=== PATIENT | female | born 1950 | race Caucasian/White ===

== ENCOUNTER → 2018-01-18 | Outpatient (CLI) | payer OTHER ==
[~2018-01-18] MED LIST: ALBU90OI; ALBU90OI6 INH; ANTIBIODICS; ASPI81CH PO; ASPI81EC; ATEN50; BUME1; BUME2 PO; CALACE667G PO; CALTRATE; CHOLESTYRAMINE 4 GM; CIPR250 PO; CYAN100 PO; ERGO50000 PO; ESTR25VT PV; ESTRADIOL; EZET10; FENO67; FISH1000 PO; FLUSAL1005 IH; FLUSAL5005; GABA100; GABA100 PO; HYDACE5 PO; HYDACE5325 PO; INSULANI SC; INSULANI SUBQ; INSULIN LISPRO; IRON; MAGOXI400 PO; MONT10T; MONT10T PO; MULTIVITAMIN QD; MULVITMINE PO; OMEP20ER PO; PARI1 PO; PARO20; PIOG15; POTA10T PO; PROACE100 PO; PROM25 PO; RXPROACE PO; SUCR1 PO; TRAM50 PO; TRIM; VITB100; ZOLP10 PO; ZOLP12.5 PO; [UNRECOGNIZED DRUG - OTHER]; [UNRECOGNIZED DRUG - OTHER]; [UNRECOGNIZED DRUG - REMARK]
== END ==
LOC: OLS 10:56 → LAB SHORT 10:56
DX: E11.65 Type 2 diabetes mellitus with hyperglycemia (principal)
CPT/HCPCS: 82043

== ENCOUNTER 2018-05-26 13:02 | Inpatient (IN) | payer OTHER ==
[~2018-05-26] VITALS: Ht 152.4 cm; Wt 56.2 kg
[2018-05-26 13:50] LABS: BASOPHILS ABSOLUTE AUTO 0.16 K/mm3 (0.00-0.23); BASOPHILS PERCENT AUTO 1 % (0-2); EOSINOPHILS ABSOLUTE AUTO 0.01 K/mm3 (0.00-0.68); EOSINOPHILS PERCENT AUTO 0 % (0-6); Hematocrit 38.4 % (33.0-51.0); Hemoglobin 13.4 g/dL (11.5-16.0); IMMATURE GRAN ABSOLUTE AUTO 0.92 K/mm3 (0.00-0.10); IMMATURE GRAN PERCENT AUTO 4 % (0-1); LYMPHOCYTES ABSOLUTE AUTO 2.23 K/mm3 (0.84-5.20); LYMPHOCYTES PERCENT AUTO 9 % (21-46); MONOCYTES ABSOLUTE AUTO 1.19 K/mm3 (0.16-1.47); MONOCYTES PERCENT AUTO 5 % (4-13); Mean Corpuscular HGB 28.9 pg (26.0-34.0); Mean Corpuscular HGB Conc 34.9 g/dL (31.5-36.5); Mean Corpuscular Volume 83 fL (80-100); Mean Platelet Volume 9.1 fL (9.1-12.4); NEUTROPHILS ABSOLUTE AUTO 19.66 K/mm3 (1.96-9.15); NEUTROPHILS PERCENT AUTO 81 % (41-73); Platelet Count 966 K/mm3 (150-400); RDW Standard Deviation 38.5 fL (35.1-46.3); Red Blood Cell Count 4.64 M/mm3 (3.80-5.20); White Blood Cell Count 24.17 K/mm3 (4.00-11.30)
[2018-05-26 14:11] LABS: Alanine Aminotransfer (ALT/SGP 13 U/L (12-78); Albumin, Blood 2.1 g/dL (3.4-5.0); Albumin/Globulin Ratio 0.3 (0.8-1.8); Alk Phos 189 U/L (50-136); Anion Gap 11 mmol/L (6-16); Aspartate Aminotrans (AST/SGOT 13 U/L (12-37); Bilirubin, Total 0.3 mg/dL (0.1-1.0); Blood Urea Nitrogen 12 mg/dL (8-24); CO2, Blood 24 mmol/L (21-32); Calcium, Blood 8.2 mg/dL (8.5-10.1); Chloride, Blood 94 mmol/L (98-108); Globulin, Blood 6.1 g/dL (2.2-4.0); Glomerular Filtration Rate >60 (60-); Glucose, Blood 300 mg/dL (70-99); Potassium, Blood 3.1 mmol/L (3.5-5.5); Sodium, Blood 129 mmol/L (136-145); Total Protein, Blood 8.2 g/dL (6.4-8.2); Troponin I <0.015 ng/mL (0.000-0.040)
[2018-05-26] MEDS ORDERED: ROPI.25 PO (14:14)
[2018-05-26] MEDS ORDERED: Lisinopril2.5 MG PO (14:14)
[2018-05-26] MEDS ORDERED: TIZANIDINE HCL2 MG PO (14:14)
[2018-05-26] MEDS ORDERED: TOUJEO MAX300 UNIT/1 (14:15)
[2018-05-26] MEDS ORDERED: HYDR1TAB94 PO (14:15)
[2018-05-26] MEDS ORDERED: Voltaren100 GM TOP (14:15)
[2018-05-26 15:41] LABS: Influenza A Negative (NEGATIVE); Influenza B Negative (NEGATIVE)
[2018-05-27 05:27] LABS: BASOPHILS ABSOLUTE AUTO 0.15 K/mm3 (0.00-0.23); BASOPHILS PERCENT AUTO 1 % (0-2); EOSINOPHILS ABSOLUTE AUTO 0.01 K/mm3 (0.00-0.68); EOSINOPHILS PERCENT AUTO 0 % (0-6); Hematocrit 35.5 % (33.0-51.0); Hemoglobin 12.1 g/dL (11.5-16.0); IMMATURE GRAN ABSOLUTE AUTO 0.94 K/mm3 (0.00-0.10); IMMATURE GRAN PERCENT AUTO 4 % (0-1); LYMPHOCYTES ABSOLUTE AUTO 3.09 K/mm3 (0.84-5.20); LYMPHOCYTES PERCENT AUTO 14 % (21-46); MONOCYTES ABSOLUTE AUTO 1.48 K/mm3 (0.16-1.47); MONOCYTES PERCENT AUTO 7 % (4-13); Mean Corpuscular HGB 28.5 pg (26.0-34.0); Mean Corpuscular HGB Conc 34.1 g/dL (31.5-36.5); Mean Corpuscular Volume 84 fL (80-100); Mean Platelet Volume 9.4 fL (9.1-12.4); NEUTROPHILS ABSOLUTE AUTO 16.91 K/mm3 (1.96-9.15); NEUTROPHILS PERCENT AUTO 75 % (41-73); Platelet Count 788 K/mm3 (150-400); RDW Coefficient Variation 13.2 % (11.7-14.2); Red Blood Cell Count 4.24 M/mm3 (3.80-5.20); White Blood Cell Count 22.58 K/mm3 (4.00-11.30)
[2018-05-27 05:48] LABS: Anion Gap 8 mmol/L (6-16); Blood Urea Nitrogen 6 mg/dL (8-24); Bun/Creatinine Ratio 12.7 (12.0-20.0); CO2, Blood 26 mmol/L (21-32); Calcium, Blood 7.7 mg/dL (8.5-10.1); Chloride, Blood 100 mmol/L (98-108); Creatinine, Blood 0.47 mg/dL (0.40-1.00); Glomerular Filtration Rate >60 (60-); Glucose, Blood 132 mg/dL (70-99); Potassium, Blood 3.2 mmol/L (3.5-5.5); Sodium, Blood 134 mmol/L (136-145)
[2018-05-28 06:33] LABS: BASOPHILS ABSOLUTE AUTO 0.11 K/mm3 (0.00-0.23); BASOPHILS PERCENT AUTO 1 % (0-2); EOSINOPHILS ABSOLUTE AUTO 0.08 K/mm3 (0.00-0.68); EOSINOPHILS PERCENT AUTO 0 % (0-6); Hemoglobin 11.7 g/dL (11.5-16.0); IMMATURE GRAN ABSOLUTE AUTO 0.63 K/mm3 (0.00-0.10); IMMATURE GRAN PERCENT AUTO 3 % (0-1); LYMPHOCYTES ABSOLUTE AUTO 3.35 K/mm3 (0.84-5.20); LYMPHOCYTES PERCENT AUTO 18 % (21-46); MONOCYTES ABSOLUTE AUTO 1.38 K/mm3 (0.16-1.47); MONOCYTES PERCENT AUTO 7 % (4-13); Mean Corpuscular HGB Conc 34.4 g/dL (31.5-36.5); Mean Corpuscular Volume 84 fL (80-100); Mean Platelet Volume 8.9 fL (9.1-12.4); NEUTROPHILS ABSOLUTE AUTO 13.26 K/mm3 (1.96-9.15); NEUTROPHILS PERCENT AUTO 71 % (41-73); Platelet Count 730 K/mm3 (150-400); RDW Coefficient Variation 13.2 % (11.7-14.2); RDW Standard Deviation 39.8 fL (35.1-46.3); Red Blood Cell Count 4.03 M/mm3 (3.80-5.20); White Blood Cell Count 18.81 K/mm3 (4.00-11.30)
[2018-05-29] MEDS ORDERED: GUAI600T33 (11:16)
[2018-05-29] MEDS ORDERED: INSULANPEN SC (11:21)
[2018-05-29] MEDS ORDERED: LEVFLO250 PO (13:58)
== END 2018-05-29 15:27 | disposition home or self-care (01) | DRG 194 ==
LOC: ER 13:02 → MEDS 14:39 → ENPENDDIS 05-29 11:20 → MEDS 05-29 15:27
PROVIDERS: Emergency Medicine; Hospitalist
PROC: 3E0234Z Introduction of Serum, Toxoid and Vaccine into Muscle, Percutaneous Approach (ICD-10-PCS; principal; 2018-05-27)
DX: J18.9 Pneumonia, unspecified organism (principal); E87.1 Hypo-osmolality and hyponatremia; J15.212 Pneumonia due to Methicillin resistant Staphylococcus aureus; E11.9 Type 2 diabetes mellitus without complications; Z79.4 Long term (current) use of insulin; G25.81 Restless legs syndrome; J44.9 Chronic obstructive pulmonary disease, unspecified; R00.0 Tachycardia, unspecified; E86.0 Dehydration; E87.6 Hypokalemia; R73.9 Hyperglycemia, unspecified; Z88.5 Allergy status to narcotic agent; Z88.8 Allergy status to other drugs, medicaments and biological substances; Z98.84 Bariatric surgery status; Z23 Encounter for immunization; Z68.25 Body mass index [BMI] 25.0-25.9, adult
CPT/HCPCS: 36415; 71046; 80048; 80053; 82947; 83605; 83690; 84484; 85025; 87040; 87070; 87077; 87147; 87186; 87205; 87804; 90686; 93005; 93010; 94640; 94760; 96361; 96374; 99285-25; J1650; J1956; J3480; J7050; J7120

== ENCOUNTER 2018-12-27 10:21 | Day surgery (SDC) | payer OTHER ==
[~2018-12-27] VITALS: Ht 152.4 cm; Wt 50.9 kg
[~2018-12-27 10:21] MED LIST changes: +GUAI600T33; +HYDR1TAB94 PO; +INSULANPEN SC; +LEVFLO250 PO; +Lisinopril2.5 MG PO; +ROPI.25 PO; +TIZANIDINE HCL2 MG PO; +TOUJEO MAX300 UNIT/1; +Voltaren100 GM TOP
== END 2018-12-27 11:56 | disposition home or self-care (01) ==
LOC: ORSCSDS 10:21
PROVIDERS: Internal Medicine Gastroenterology
PROC: 0DB68ZX Excision of Stomach, Via Natural or Artificial Opening Endoscopic, Diagnostic (ICD-10-PCS; principal; 2018-12-27 12:00)
PROC: 0D758ZZ Dilation of Esophagus, Via Natural or Artificial Opening Endoscopic (ICD-10-PCS; principal; 2018-12-27 12:00)
PROC: 0DB58ZX Excision of Esophagus, Via Natural or Artificial Opening Endoscopic, Diagnostic (ICD-10-PCS; principal; 2018-12-27 12:00)
DX: R93.89 Abnormal findings on diagnostic imaging of other specified body structures (principal); K21.0 Gastro-esophageal reflux disease with esophagitis; K76.0 Fatty (change of) liver, not elsewhere classified; Z98.84 Bariatric surgery status; E03.9 Hypothyroidism, unspecified; E11.9 Type 2 diabetes mellitus without complications; E78.5 Hyperlipidemia, unspecified; G47.33 Obstructive sleep apnea (adult) (pediatric); Z79.4 Long term (current) use of insulin; Z79.899 Other long term (current) drug therapy
CPT/HCPCS: 82947; 88305; 88312; 88342; C1726; J2704; J7120

== ENCOUNTER 2022-01-23 19:29 | Inpatient (IN) | payer MEDICARE ==
[~2022-01-23] VITALS: Ht 154.9 cm; Wt 45.2 kg
[2022-01-23 20:19] LABS: BASOPHILS ABSOLUTE AUTO 0.07 K/mm3 (0.00-0.23); BASOPHILS PERCENT AUTO 1 % (0-2); EOSINOPHILS ABSOLUTE AUTO 0.01 K/mm3 (0.00-0.68); EOSINOPHILS PERCENT AUTO 0 % (0-6); Hemoglobin 15.9 g/dL (11.5-16.0); IMMATURE GRAN ABSOLUTE AUTO 0.13 K/mm3 (0.00-0.10); IMMATURE GRAN PERCENT AUTO 1 % (0-1); LYMPHOCYTES ABSOLUTE AUTO 1.54 K/mm3 (0.84-5.20); LYMPHOCYTES PERCENT AUTO 11 % (21-46); MONOCYTES ABSOLUTE AUTO 0.91 K/mm3 (0.16-1.47); MONOCYTES PERCENT AUTO 6 % (4-13); Mean Corpuscular HGB 27.5 pg (26.0-34.0); Mean Corpuscular HGB Conc 34.6 g/dL (31.5-36.5); Mean Corpuscular Volume 79 fL (80-100); NEUTROPHILS ABSOLUTE AUTO 11.55 K/mm3 (1.96-9.15); NEUTROPHILS PERCENT AUTO 81 % (41-73); Platelet Count 591 K/mm3 (150-400); RDW Coefficient Variation 13.2 % (11.7-14.2); RDW Standard Deviation 37.3 fL (35.1-46.3); Red Blood Cell Count 5.79 M/mm3 (3.80-5.20); White Blood Cell Count 14.21 K/mm3 (4.00-11.30)
[2022-01-23 20:22] LABS: Bicarbonate Venous 14.1 mmol/L (24.0-30.0); PCO2 Venous 32.5 mmHg (38-42); PO2 Venous 59.1 mmHg (38-42)
[2022-01-23 20:23] LABS: pH Blood Venous 7.21 (7.34-7.37)
[2022-01-23 20:39] LABS: Albumin, Blood 3.2 g/dL (3.4-5.0); Albumin/Globulin Ratio 0.6 (0.8-1.8); Bilirubin, Total 0.6 mg/dL (0.1-1.0); Calcium, Blood 9.6 mg/dL (8.5-10.1); Creatinine, Blood 0.56 mg/dL (0.40-1.00); Globulin, Blood 5.1 g/dL (2.2-4.0); Potassium, Blood 3.9 mmol/L (3.5-5.5); Total Protein, Blood 8.3 g/dL (6.4-8.2)
[2022-01-23 21:04] LABS: Magnesium, Blood 1.7 mg/dL (1.6-2.4)
[2022-01-23 21:05] LABS: Beta-hydroxybutyrate 89.5 mg/dL (0.2-2.8)
--- NOTE | 2022-01-23 23:05 | NUR ---
ARRIVAL TO ICU PT BROUGHT TO ICU VIA GURNEY. SHE IS ON AN INSULIN GTT AT 4UNITS/HR. SHE IS ALERT AND ANSWERS QUESTIONS BUT MAY BE A POOR HISTORIAN. SHE REPORTS CHECKING HER BLOOD SUGAR ONCE EVERY TWO WEEKS. SHE STS SHE HAS NOT ATE OR DRANK SINCE YESTERDAY AND UNKNOWN LAST BM. SHE DENIES N/V AND ABDOMINAL PAIN. SINUS TACH ON MONITOR WITH HR 100-110. SBP 100S. SPO2 >95% ON RA. SHE DENIES FEELING ITCHY BUT FREQUENTLY SCRATCHES HIPS. BUTTOCKS AND NIA AREA RED. CBG 380, INSULIN GTT TITRATED TO 2UNITS/HR. NS STARTED AT 75ML/HR. PT RESTING WITH EYES CLOSED, CALL LIGHT WITHIN REACH.
[2022-01-24 01:01] LABS: Source, Urine Clean Catch
[2022-01-24 01:09] LABS: Appearance, Urine Hazy (Clear); Bilirubin, Urine Neg (Neg); Blood, Urine 1+ (Neg); Color, Urine Yellow (P-Yellow); Glucose Qualitative, Urine 4+ (Neg); Ketones, Urine 4+ (Neg); Leukocyte Esterase, Urine 2+ (Neg); Nitrite, Urine Pos (Neg); Protein, Urine 1+ (Neg); Urobilinogen, Urine NORM (Normal)
[2022-01-24 01:15] LABS: Bacteria Mod /hpf; Red Blood Cells, Urine Rare /hpf (0-2); Squamous Epithelial Cells Not Seen /hpf (Few); White Blood Cells, Urine TNTC /hpf (0-5)
[2022-01-24 04:56] LABS: BASOPHILS ABSOLUTE AUTO 0.06 K/mm3 (0.00-0.23); BASOPHILS PERCENT AUTO 1 % (0-2); EOSINOPHILS ABSOLUTE AUTO 0.04 K/mm3 (0.00-0.68); EOSINOPHILS PERCENT AUTO 0 % (0-6); Hematocrit 42.9 % (33.0-51.0); Hemoglobin 14.8 g/dL (11.5-16.0); IMMATURE GRAN ABSOLUTE AUTO 0.11 K/mm3 (0.00-0.10); IMMATURE GRAN PERCENT AUTO 1 % (0-1); LYMPHOCYTES ABSOLUTE AUTO 2.25 K/mm3 (0.84-5.20); LYMPHOCYTES PERCENT AUTO 18 % (21-46); MONOCYTES ABSOLUTE AUTO 1.27 K/mm3 (0.16-1.47); MONOCYTES PERCENT AUTO 10 % (4-13); Mean Corpuscular HGB 27.4 pg (26.0-34.0); Mean Corpuscular HGB Conc 34.5 g/dL (31.5-36.5); Mean Corpuscular Volume 79 fL (80-100); Mean Platelet Volume 8.9 fL (9.1-12.4); NEUTROPHILS ABSOLUTE AUTO 9.11 K/mm3 (1.96-9.15); NEUTROPHILS PERCENT AUTO 71 % (41-73); Platelet Count 510 K/mm3 (150-400); RDW Coefficient Variation 13.2 % (11.7-14.2); RDW Standard Deviation 37.2 fL (35.1-46.3); White Blood Cell Count 12.84 K/mm3 (4.00-11.30)
[2022-01-24 05:24] LABS: Albumin, Blood 2.7 g/dL (3.4-5.0); Albumin/Globulin Ratio 0.6 (0.8-1.8); Bilirubin, Total 0.7 mg/dL (0.1-1.0); Bun/Creatinine Ratio 31.9 (12.0-20.0); Calcium, Blood 9.4 mg/dL (8.5-10.1); Creatinine, Blood 0.41 mg/dL (0.40-1.00); Globulin, Blood 4.5 g/dL (2.2-4.0); Potassium, Blood 3.7 mmol/L (3.5-5.5); Total Protein, Blood 7.2 g/dL (6.4-8.2)
--- NOTE | 2022-01-24 10:15 | NUR ---
ASSUMED CARE OF PT, REPORT RCV'D FROM ANUM VELASQUEZ. PT ALERT TO SELF, FOLLOWS COMMANDS, WITHDRAWN ONLY ANSWERING YES/NO QUESTIONS. PT FORGETFUL NEEDING CONSISTENT REMINDERS TO USE CALL LIGHT AND TO ASK FOR ASSISTANCE WITH AMBULATING. BED ALARM ON, BED IN LOW/LOCKED POSITION, DOOR/CURTAIN OPEN. LUNG SOUNDS CLEAR T/O, SATS 98% ON ROOM AIR. PT HAS NO APPETITE, REFUSING MEALS AND PO MEDICATIONS. HYPOACTIVE BOWEL TONES. INSULIN GTT @3 UNITS/HR, D5 1/2NS @75 ML/HR. UPDATED PT'S DAUGHTER ELLA THIS AM, PT'S AT BEDSIDE MEETING WITH CARE MANAGEMENT AND PALLIATIVE CARE. SEE FULL SHIFT ASSESSMENT.
[2022-01-24 10:52] LABS: Beta-hydroxybutyrate 16.5 mg/dL (0.2-2.8); Bun/Creatinine Ratio 31.2 (12.0-20.0); Calcium, Blood 8.8 mg/dL (8.5-10.1); Creatinine, Blood 0.35 mg/dL (0.40-1.00); Magnesium, Blood 1.7 mg/dL (1.6-2.4); Phosphorus, Blood 1.4 mg/dL (2.5-4.9); Potassium, Blood 3.5 mmol/L (3.5-5.5)
--- NOTE | 2022-01-24 11:00 | NUR ---
PT MUCH MORE ALERT AND RESPONSIVE, REQUESTING TO EAT FOOD.
--- NOTE | 2022-01-24 16:56 | NUR ---
PT CONTINUES TO HAVE INTERMITTENT CONFUSION, REDIRECTABLE AND COOPERATIVE WITH CARE. WORKED WELL WITH PT/OT, RECOMMENDED FWW AND HOME HEALTH. PT CHANGED TO MEDICAL STATUS, NO TELE-TRANSFERRED TO ROOM 352.
--- NOTE | 2022-01-24 17:14 | NUR ---
Assumed care Received report from ANUM Leo. Patient transferred from ICU. Arrived via bed, no family at bedside. Ambulated to bed with SBA. NS @ 100 resumed. Settled to room, bed in lowest position, call light near, bed alarm on.
--- NOTE | 2022-01-24 17:40 | NUR ---
pt fatigued at bedside seems confussed and repetative. pt having heaches and fatigue. pt on insuln drip . review of hose status will foloow for plan of care and disease managment. will discuass code status.
--- NOTE | 2022-01-25 03:55 | NUR ---
PT A/O TO SELF AND . PT GETS CONFUSED AND IS FORGETFUL. PT FINISHED 1L BAG OF NS PER EMAR. PT HAS BEEN CONTINENT AND HAS VOIDED X 6. PT HAD PALLIATIVE CARE CONSULT YESTERDAY AFTERNOON. PT REMINDED TO USE CALL LIGHT BUT FORGETS THAT SHE SAID YES. PT AMBULATES WITH SBA AND FWW AND TOLERATES WELL. PT IS RESTING WITH CALL LIGHT WITHIN REACH, BED IN LOW POSITION, AND BED ALARM ON.
--- NOTE | 2022-01-25 06:06 | NUR ---
STUDENT NOTES AND DOCUMENTS REVIEWED AND IN AGREEMENT WITH.
[2022-01-25 06:25] LABS: Albumin, Blood 2.3 g/dL (3.4-5.0); Anion Gap 8 mmol/L (6-16); Blood Urea Nitrogen 7 mg/dL (8-24); Bun/Creatinine Ratio 21.3 (12.0-20.0); CO2, Blood 22 mmol/L (21-32); Calcium, Blood 8.7 mg/dL (8.5-10.1); Chloride, Blood 106 mmol/L (98-108); Creatinine, Blood 0.33 mg/dL (0.40-1.00); Glomerular Filtration Rate 109 (60-); Glucose, Blood 112 mg/dL (70-99); Magnesium, Blood 1.5 mg/dL (1.6-2.4); Phosphorus, Blood 2.1 mg/dL (2.5-4.9); Potassium, Blood 3.2 mmol/L (3.5-5.5); Sodium, Blood 136 mmol/L (136-145)
--- NOTE | 2022-01-25 10:30 | NUR ---
DR. LOPEZ AT BEDSIDE, DISCUSSING WITH PT'S DAUGHTER ELLA AND PT'S SPOUSE ED.
[2022-01-25] MEDS ORDERED: MIRALAX11910 PO (12:51)
[2022-01-25] MEDS ORDERED: VISBIOME 112.51 EACH PO (12:51)
[2022-01-25] MEDS ORDERED: CEFD300 PO (12:52)
[2022-01-25] MEDS ORDERED: HUMALOG KW100 UNIT/1 SC (12:53)
[2022-01-25] MEDS ORDERED: ERGO400 PO (12:54)
[2022-01-25] MEDS ORDERED: PANT40 PO (12:54)
[2022-01-25] MEDS ORDERED: CEROVITE PO (12:57)
--- NOTE | 2022-01-25 13:34 | NUR ---
DISCHARGE INSTRUCTIONS REVIEWED WITH PT AND DAUGHTER ELLA, INCLUDING MEDICATIONS TO VP INTEGRITY FROM PHARMACY INCLUDING NEW MEDICATIONS, LOW SLIDING SCALE, AND IMPORTANCE TO CALL AND MAKE HOSPITAL FOLLOW UP APPT WITH PCP. PT STATES SHE IS NOT SURE IF SHE HAS INSULIN AT HOME. DAUGHTER ELLA STATES SHE WILL VERIFY MEDICATIONS AT HOME AND DISCUSS FURTHER WITH PT'S SPOUSE ED, WHO WILL BE PT'S PRIMARY CAREGIVER. HOME HEALTH HAS ALSO BEEN ORDERED AND FACE TO FACE COMPLETED.
--- NOTE | 2022-01-25 14:26 | NUR ---
PT'S DAUGHTER, ELLA, AT BEDSIDE. ELLA REPORTS THAT TRACY'S SPOUSE STATES THEY DO NOT HAVE ANY SEMGLEE INSULIN AT HOME. RN THEN CALLED DR. LOPEZ, WHO HAD ORDERS TO CALL PHARMACY WITH ORDER FOR SEMGLEE. RN CALLED PHARMACY AND SPOKE TO GERHARD, GAVE VERBAL ORDER FOR SEMGLEE 25 UNIT SUBQ AT BEDTIME, ONCE DAILY
--- NOTE | 2022-01-25 16:30 | NUR ---
PHONE CALL TO DR. LOPEZ - GAVE PT UPDATE. PT HAS HAD TWO SEPARATE EPISODES OF EMESIS, MODERATE AMOUNT OF LIGHT BROWN MUCUS EMESIS. PT HAS BEEN VOIDING FREQUENT SMALL VOIDS. NAUSEOUS AFTER DINNER, WHICH WAS IMPROVED WITH ZOFRAN. PT STATES SHE HASN'T HAD MUCH APPETITE "FOR A LONG TIME." PT HAS NOT HAD A BOWEL MOVEMENT "IN A LONG TIME" = BOWEL TONES HYPOACTIVE, REPORTS UPSET STOMACH, NOT PAINFUL TO PALPATION. NO ABD DISTENTION NOTED. DR. LOPEZ WITH ORDERS FOR NORMAL SALINE WITH 20MEQ OF POTASSIUM AT 100ML/HR X 1 BAG, AND SENNOKOT 17.2 MG.
--- NOTE | 2022-01-25 17:49 | NUR ---
PHONE CALL TO DR. LOPEZ TO NOTIFY THAT PT'S CBG PRIOR TO DINNER WAS 379. PT RECEIVED 5 UINITS OF HUMALOG INSULIN PER SLIDING SCALE. DR. LOPEZ WITH NO FUTHER ORDERS AT THIS TIME.
--- NOTE | 2022-01-25 22:10 | NUR ---
PATIENT OOB X 6 WITHIN AN HOUR ACTIVATING BED ALARM. NOT ABLE TO FOLLOW DIRECTIONS AT THIS TIME. BED ALARM RESET. CALL LIGHT IN REACH.
--- NOTE | 2022-01-26 03:25 | NUR ---
PT HAS VOIDED X 12 DURING SHIFT. PT STATES CONSTANT URGE TO GO. PT HAS 20 meQ POTASSIUM IN 1000ML NS RUNNING AT 100MLS/HR. PT DOES NOT USE CALL LIGHT AND IS IMPULSIVE. PT A/O TO SELF, SUROUNDINGS AND FAMILY BUT THINKS IT IS 1971. PT HAS DISCHARGE ORDERS READY AND IS PLANNING ON DISCHARGE ON 01/26/22. PT HAS HOME HEALTH SET UP AND GOING TO LIVE WITH SPOUSE. PT IS RESTING WITH TV ON AND CALL LIGHT WITHIN REACH, BED IN LOW POSITION, AND BED ALARM ON.
--- NOTE | 2022-01-26 05:33 | NUR ---
QU[employer] EXTRACTION WORKER NOTES AND DOCUMENTION REVIEWED AND IN AGREEMENT
--- NOTE | 2022-01-26 09:52 | NUR ---
SPOUSE, ED, AT BEDSIDE WITH QUESTIONS RE: WHEN IS SHE ABLE TO GO HOME? RN ADVISED WITH AWAIT ROUNDING UPDATES FROM DR. LOPEZ. FAMILY VERB UNDERSTANDING.
--- NOTE | 2022-01-26 10:00 | NUR ---
PHONE CALL WITH DR. MONACO: RN PLACED CALL TO DR. MONACO INQUIRING ABOUT DISCHARGE ORDERS, VERBAL ORDERS FROM DR. MONACO - IF PT IS STABLE, SHE IS OK FOR DISCHARGE. PT HAS DENIED NAUSEA AND EMESIS THIS AM, EATEN 50% OF HER BREAKFAST. PT'S SPOUSE, ED, AT BEDSIDE - NOTIFIED OF UPDATE, HE IS ASSISTING PT WITH HER CLOTHING. PT'S DISCHARGE TEACHING AND MEDICATIONS AND RETURN PRECAUTIONS WERE REVIEWED WITH FAMILY YESTERDAY WITH THIS RN. DISCHARGE PAPERWORK, SIGNED BY PT'S DAUGHTER ELLA, IS IN CHART.
--- NOTE | 2022-01-26 10:27 | NUR ---
POWERGLIDE IV IN RIGHT ARM REMOVED BY ANUM MANN.
--- NOTE | 2022-01-26 11:25 | NUR ---
DISCHARGE INSTRUCTION REVIEWED WITH SPOUSE AND DAUGHTER, REGARDING MEDICATION COMPLIANCE AND STORAGE OF INSULIN. DIABETIC EDUCATION PROVIDED. PT DISCHARGED TO CARE OF DAUGHTER ELLA, SPOUSE ED AND SON -IN-LAW. ALL PERSONAL BELONGINGS RETURNED TO PT. PT ESCORTED VIA WHEELCHAIR, PROPELLED BY RN, TO PRIVATE VEHICLE DRIVEN BY SON-IN-LAW. TOLERATED PROCEDURE WELL, NO SX OF DISTRESS.
== END 2022-01-26 10:52 | disposition home health service (06) | DRG 637 ==
LOC: ER 19:29 → ICUE 19:30 → ICUW 19:30 → ICUE 23:05 → MEDS 01-24 16:58
PROVIDERS: Emergency Medicine; Internal Medicine; Physician Assistant; ADMIT Internal Medicine
DX: E11.10 Type 2 diabetes mellitus with ketoacidosis without coma (principal); G92.8 Other toxic encephalopathy; E43 Unspecified severe protein-calorie malnutrition; F05 Delirium due to known physiological condition; N39.0 Urinary tract infection, site not specified; Z68.1 Body mass index [BMI] 19.9 or less, adult; E86.0 Dehydration; J44.9 Chronic obstructive pulmonary disease, unspecified; F03.90 Unspecified dementia, unspecified severity, without behavioral disturbance, psychotic disturbance, mood disturbance, and anxiety; E83.39 Other disorders of phosphorus metabolism; M54.9 Dorsalgia, unspecified; G89.29 Other chronic pain; B96.1 Klebsiella pneumoniae [K. pneumoniae] as the cause of diseases classified elsewhere; E87.6 Hypokalemia; E83.42 Hypomagnesemia; K21.9 Gastro-esophageal reflux disease without esophagitis; K76.0 Fatty (change of) liver, not elsewhere classified; I48.0 Paroxysmal atrial fibrillation; E55.9 Vitamin D deficiency, unspecified; Z91.14 Patient's other noncompliance with medication regimen; Z98.84 Bariatric surgery status; Z88.1 Allergy status to other antibiotic agents; Z88.5 Allergy status to narcotic agent; Z88.8 Allergy status to other drugs, medicaments and biological substances; Z79.82 Long term (current) use of aspirin; Z79.899 Other long term (current) drug therapy
CPT/HCPCS: 36415; 70450; 71045; 80048; 80053; 80069; 81001; 82010; 82306; 82607; 82746; 82803; 82947; 83036; 83735; 83880; 83930; 84100; 85025; 87077; 87086; 87186; 96361; 96374; 97116; 97162; 97165; 97530; 99285-25; A9270; J0696; J1650; J1815; J2405; J3475; J3480; J7030; J7042; J7060; J7120

== ENCOUNTER 2022-05-04 20:33 | Emergency (ER) | payer MEDICARE, OTHER ==
[~2022-05-04] VITALS: Ht 167.6 cm; Wt 70.3 kg
[~2022-05-04 20:33] MED LIST changes: +CEFD300 PO; +CEROVITE PO; +ERGO400 PO; +HUMALOG KW100 UNIT/1 SC; +MIRALAX11910 PO; +PANT40 PO; +VISBIOME 112.51 EACH PO
[2022-05-04 20:58] LABS: BASOPHILS ABSOLUTE AUTO 0.06 K/mm3 (0.00-0.23); BASOPHILS PERCENT AUTO 1 % (0-2); EOSINOPHILS ABSOLUTE AUTO 0.12 K/mm3 (0.00-0.68); EOSINOPHILS PERCENT AUTO 1 % (0-6); Hematocrit 42.5 % (33.0-51.0); Hemoglobin 13.9 g/dL (11.5-16.0); IMMATURE GRAN ABSOLUTE AUTO 0.05 K/mm3 (0.00-0.10); IMMATURE GRAN PERCENT AUTO 0 % (0-1); LYMPHOCYTES ABSOLUTE AUTO 2.33 K/mm3 (0.84-5.20); LYMPHOCYTES PERCENT AUTO 21 % (21-46); MONOCYTES ABSOLUTE AUTO 0.71 K/mm3 (0.16-1.47); MONOCYTES PERCENT AUTO 6 % (4-13); Mean Corpuscular HGB 27.4 pg (26.0-34.0); Mean Corpuscular HGB Conc 32.7 g/dL (31.5-36.5); Mean Corpuscular Volume 84 fL (80-100); Mean Platelet Volume 9.1 fL (9.1-12.4); NEUTROPHILS ABSOLUTE AUTO 8.01 K/mm3 (1.96-9.15); NEUTROPHILS PERCENT AUTO 71 % (41-73); Platelet Count 416 K/mm3 (150-400); RDW Coefficient Variation 13.2 % (11.7-14.2); Red Blood Cell Count 5.07 M/mm3 (3.80-5.20); White Blood Cell Count 11.28 K/mm3 (4.00-11.30)
[2022-05-04 21:18] LABS: Albumin, Blood 3.5 g/dL (3.4-5.0); Albumin/Globulin Ratio 0.8 (0.8-1.8); Bilirubin, Total 0.3 mg/dL (0.1-1.0); Bun/Creatinine Ratio 34.7 (12.0-20.0); Creatinine, Blood 0.58 mg/dL (0.40-1.00); Globulin, Blood 4.6 g/dL (2.2-4.0); Potassium, Blood 4.1 mmol/L (3.5-5.5); Total Protein, Blood 8.1 g/dL (6.4-8.2)
== END 2022-05-05 01:46 | disposition home or self-care (01) ==
LOC: ER 20:33
PROVIDERS: Emergency Medicine
DX: E16.2 Hypoglycemia, unspecified (principal); F03.90 Unspecified dementia, unspecified severity, without behavioral disturbance, psychotic disturbance, mood disturbance, and anxiety; Z91.14 Patient's other noncompliance with medication regimen; Z88.1 Allergy status to other antibiotic agents; Z88.5 Allergy status to narcotic agent; Z88.8 Allergy status to other drugs, medicaments and biological substances; Z88.9 Allergy status to unspecified drugs, medicaments and biological substances; Z79.899 Other long term (current) drug therapy; Z79.82 Long term (current) use of aspirin
CPT/HCPCS: 80053; 82947; 85025; J7030

== ENCOUNTER 2023-10-01 12:20 | Emergency (ER) | payer MEDICARE, OTHER ==
[~2023-10-01] VITALS: Ht 160 cm; Wt 68.0 kg
[2023-10-01 13:18] LABS: Bicarbonate Venous 28.5 mmol/L (24.0-30.0); pH Blood Venous 7.39 (7.34-7.37)
[2023-10-01 13:21] LABS: BASOPHILS ABSOLUTE AUTO 0.04 K/mm3 (0.00-0.23); BASOPHILS PERCENT AUTO 1 % (0-2); EOSINOPHILS ABSOLUTE AUTO 0.08 K/mm3 (0.00-0.68); EOSINOPHILS PERCENT AUTO 1 % (0-6); Hematocrit 33.6 % (33.0-51.0); Hemoglobin 10.8 g/dL (11.5-16.0); IMMATURE GRAN ABSOLUTE AUTO 0.06 K/mm3 (0.00-0.10); IMMATURE GRAN PERCENT AUTO 1 % (0-1); LYMPHOCYTES ABSOLUTE AUTO 1.89 K/mm3 (0.84-5.20); LYMPHOCYTES PERCENT AUTO 22 % (21-46); MONOCYTES ABSOLUTE AUTO 0.58 K/mm3 (0.16-1.47); MONOCYTES PERCENT AUTO 7 % (4-13); Mean Corpuscular HGB Conc 32.1 g/dL (31.5-36.5); Mean Corpuscular Volume 78 fL (80-100); Mean Platelet Volume 9.1 fL (9.1-12.4); NEUTROPHILS ABSOLUTE AUTO 5.92 K/mm3 (1.96-9.15); NEUTROPHILS PERCENT AUTO 69 % (41-73); Platelet Count 553 K/mm3 (150-400); RDW Coefficient Variation 14.8 % (11.7-14.2); RDW Standard Deviation 41.8 fL (35.1-46.3); Red Blood Cell Count 4.32 M/mm3 (3.80-5.20); White Blood Cell Count 8.57 K/mm3 (4.00-11.30)
[2023-10-01 13:51] LABS: Alanine Aminotransfer (ALT/SGP 12 U/L (12-78); Albumin, Blood 2.2 g/dL (3.4-5.0); Albumin/Globulin Ratio 0.5 (0.8-1.8); Alk Phos 121 U/L (50-136); Anion Gap 4 mmol/L (6-16); Aspartate Aminotrans (AST/SGOT 20 U/L (12-37); Bilirubin, Total 0.3 mg/dL (0.1-1.0); Blood Urea Nitrogen 20 mg/dL (8-24); Bun/Creatinine Ratio 47.4 (12.0-20.0); CO2, Blood 29 mmol/L (21-32); Chloride, Blood 95 mmol/L (98-108); Creatinine, Blood 0.42 mg/dL (0.40-1.00); Globulin, Blood 4.3 g/dL (2.2-4.0); Glomerular Filtration Rate 102 (60-); Glucose, Blood 609 mg/dL (70-99); Potassium, Blood 4.9 mmol/L (3.5-5.5); Sodium, Blood 128 mmol/L (136-145); Total Protein, Blood 6.5 g/dL (6.4-8.2)
[2023-10-01] MEDS ORDERED: Insulin Regular 100 Unit/ML 1ML Dose IV ONE (14:30)
[2023-10-01 14:41] LABS: Source, Urine Clean Catch
[2023-10-01 14:43] LABS: Appearance, Urine Clear (Clear); Bilirubin, Urine Neg (Neg); Blood, Urine Neg (Neg); Glucose Qualitative, Urine 4+ (Neg); Ketones, Urine 1+ (Neg); Leukocyte Esterase, Urine Neg (Neg); Nitrite, Urine Neg (Neg); Protein, Urine Neg (Neg); Specific Gravity, Urine 1.005 (1.003-1.022); Urobilinogen, Urine NORM (Normal); pH, Urine 6.5 (5.0-8.0)
[2023-10-01 14:58] LABS: Color, Urine Pale Yellow (P-Yellow)
[2023-10-01 16:45] VITALS: BP 131/71
[2023-10-01] MEDS ORDERED: LANTUS SOL100 UNIT/1 SC (16:56)
== END 2023-10-01 16:57 | disposition home or self-care (01) ==
LOC: ER 12:20
PROVIDERS: Emergency Medicine
DX: E11.65 Type 2 diabetes mellitus with hyperglycemia (principal); I48.91 Unspecified atrial fibrillation; F03.90 Unspecified dementia, unspecified severity, without behavioral disturbance, psychotic disturbance, mood disturbance, and anxiety; Z79.82 Long term (current) use of aspirin; Z79.4 Long term (current) use of insulin; Z79.899 Other long term (current) drug therapy; Z88.8 Allergy status to other drugs, medicaments and biological substances; Z88.1 Allergy status to other antibiotic agents; Z88.5 Allergy status to narcotic agent
CPT/HCPCS: 70450; 80053; 81003; 82010; 82803; 82947; 83930; 84443; 85025; 93005; 93010; 99284-25; J1815